=== PATIENT | male | born 1960 | race Caucasian/White ===

== ENCOUNTER 2021-10-18 11:04 | Outpatient (CLI) | payer OTHER, MEDICAID, SELFPAY ==
[2021-10-18 13:41] LABS: Chloride* 103 mmol/L (96-114); Sodium* 136 mmol/L (135-149)
[2021-10-18 13:42] LABS: Potassium* 4.8 mmol/L (3.6-5.1)
[2021-10-18 13:44] LABS: Alanine Aminotransferase* 24 U/L (4-50); Blood Urea Nitrogen* 22 mg/dL (7-30); Carbon Dioxide* 24 mmol/L (20-32); Cholesterol* 210 mg/dL (90-199); Creatinine* 1.1 mg/dL (0.5-1.5); Estimated Glomerular Filt Rate 75 ml/min
[2021-10-18 13:45] LABS: Calcium* 9.3 mg/dL (8.4-10.6); Glucose* 98 mg/dL (60-115); HDL Cholesterol* 55 mg/dL (>=40); LDL Cholesterol Calculated 137 mg/dL (<100); Triglycerides* 92 mg/dL (40-149)
== END 2021-10-18 11:05 | disposition home or self-care (01) ==
PROVIDERS: PCP Family Medicine; Visit Provider Family Medicine
DX: Z00.00 Encounter for general adult medical examination without abnormal findings (principal); I10 Essential (primary) hypertension; C61 Malignant neoplasm of prostate; F41.8 Other specified anxiety disorders; B35.4 Tinea corporis; Z13.6 Encounter for screening for cardiovascular disorders
CPT/HCPCS: 80048; 80061; 84460

== ENCOUNTER 2021-11-23 10:12 | Outpatient (CLI) | payer OTHER, MEDICAID, SELFPAY ==
[2021-11-23 11:28] LABS: PSA Diagnostic* 4.22 ng/mL (0.10-4.00)
== END 2021-11-23 10:13 | disposition home or self-care (01) ==
PROVIDERS: PCP Family Medicine; Visit Provider Physician Assistant
DX: C61 Malignant neoplasm of prostate (principal)
CPT/HCPCS: 36415; 84153

== ENCOUNTER 2022-02-20 11:00 | Outpatient (RCR) | payer OTHER, MEDICAID, SELFPAY | END 2022-05-29 13:50 | disposition home or self-care (01) | PROVIDERS: PCP Family Medicine; Visit Provider Internal Medicine | DX: C61 Malignant neoplasm of prostate (principal); Z51.89 Encounter for other specified aftercare | CPT/HCPCS: 97110; 97140; 97162 ==

== ENCOUNTER 2022-02-22 10:57 | Outpatient (CLI) | payer OTHER, MEDICAID, SELFPAY ==
[2022-02-22 12:28] LABS: PSA Diagnostic* 2.84 ng/mL (0.10-4.00)
== END 2022-02-22 10:58 | disposition home or self-care (01) ==
PROVIDERS: PCP Family Medicine; Visit Provider Internal Medicine
DX: C61 Malignant neoplasm of prostate (principal)
CPT/HCPCS: 36415; 84153

== ENCOUNTER 2022-04-03 14:30 | Outpatient (RCR) | payer OTHER, MEDICAID, SELFPAY ==
--- NOTE | 2022-03-11 17:23 | PT.OPEX ---
Please sign the attached PT evaluation completed on 03/11/22. Thank you. PT [facility] Eval Start: 03/11/22 11:29 Freq: Status: Active Protocol: Document 03/11/22 11:31 TLQ (Rec: 03/11/22 15:23 TLQ [id number]) E-signed By Veronica Cervantes DPT Physical Therapy Outpatient Evaluation Insurance Information Recert Due Date 06/09/22 Insurance Name Other; See Comments Insurance Information/Comments Medicare Advantage [employer] Gold Choice Medical Diagnosis Pain in left shoulder Pain in right shoulder Treating Diagnosis Pain in L shoulder (M25.512) Pain in R shoulder (M25.511) Referring MD Magana Subjective Subjective States he's been having pain in both of his shoulder, left side hurts a lot more than the right. Pain has been present for about 3 years, thinks its related to over-training. Participates in classes at [employer] for [facility], aerobics. Pain worsens with any overhead lifting or lifting his arm out to the side. Pain is localized to the front of his shoulder. Prefers to sleep on his stomach, pain wakes him up 2-3 nights per week, usually a few times a night on the nights when it does wake him up. Hasn't had any imaging done. Currently attending PT for pelvic floor. Current medical history: prostate cancer PMHx: stroke (3 years ago, L- side impacted), strep infection (brain) Pain Comments 0/10 at rest L shoulder: 6/10 R shoulder: 3/10 Current Work Status [employer] Disability Preferred Name [employer] Precautions Treatment Precautions/Contraindications Active cancer Therapy Limitations/Systems Review Other Medical Problem Objective Range of Motion Shoulder: flexion - L 170 pain, R 180 pain abduction - L 180 pain, R 180 internal rotation - L T12, R T6 external rotation - L T2 mild discomfort, R T4 Strength Shoulder: flexion - 5 B, L sided discomfort extension - 5 B abduction - 5 B adduction - 5 B internal rotation - 5 B external rotation - L 4- very painful, R 4+ discomfort protraction - L 4, R 5 Elbow: flexion - 5 B extension - 5 B Palpation TTP - teres minor bilaterally, L bicep, bilateral pectorals Non-tender with palpation of R bicep, bilateral supraspinatus muscle/tendon, bilateral infraspinatus muscle /tendon Joint mobility - L scapula hypermobile Posture Rounded shoulders posture Sensation/Reflexes UE sensation - screened and intact Other/Pertinent Objective Shoulder: Acromioclavicular shear test - negative bilaterally Marcos-Orlando test - negative on R, positive on L Neer impingement test - positive bilaterally Lancaster's active compression test - positive bilaterally Empty can test - positive on R , negative on L Drop arm test - negative on R, positive on L for pain at 45 degrees (feels clunk) Lift-off (subscapularis) test - negative bilaterally Functional Test Performed & Score SPADI score (03/11/22): 34/130 (pain > disability) Assessment Assessment/Impression Patient is a 61 year old male who presents to physical therapy with chronic bilateral shoulder pain, L >R. He has history of stroke impacting the L side of his body 3 years ago, has active prostate cancer for which he was receiving radiation therapy. Patient is fairly active, takes multiple group exercise classes each weak. Shoulder symptoms consistent with impingement syndrome, pain primarily with overhead activities, positive Marcos- Orlando and Neers. Possible labral involvement due to positive Lancaster's test, does not experience locking in his shoulder but will plan to further assess at next visit. Overall demonstrates full ROM, painful with full flexion and abduction bilaterally, limited in external rotation on L side and presents with pain upon resistive testing. Tender with palpation of L biceps and bilateral pectoralis muscles. He will benefit from skilled therapeutic interventions to achieve full, pain-free shoulder mobility in order to perform overhead activities throughout his daily life. Primary Functional Limitations chronic bilateral shoulder pain, limited L shoulder external rotation, pain with overhead reaching, decreased quality of sleep, shoulder external rotation weakness, L scapular hypermobility Plan of Care Rehabilitation Potential Fair Rehabilitation Potential Comments Fair rehab potential give chronicity of symptoms Physical Therapy Goals In 3-4 visits: - Patient will wake up no more than 2 nights per week for improved quality of sleep. - Patient will decrease subjective report of L shoulder pain to <4/10 for improved tolerance to overhead activities. In 6-8 visits: - Will improve shoulder external rotation and protraction strength to 5/5 to tolerate lifting 5lbs with minimal symptoms. - Pain will wake patient up no more than 1 night per week for improved quality of sleep. - L shoulder pain with decrease to 2/10 for improve participation in exercise classes. - Patient will adhere to HEP to manage symptoms IND at home . Treatment Plan/Direct Interventions Joint Mobilization,Manual Therapy,Neuromuscular Re-ed, Therapeutic Activities, Therapeutic Exercises Frequency/Duration 1x/week for 8 weeks Patient Will Be Discharged From Therapy Completion of LTG(s),Skills Plateau,Independent w/HEP, Independently Progressing Evaluation Billing Untimed Code Treatment Minutes 40 Complexity Moderate Certification Information Initial Certification Date 03/11/22 Ending Certification Date 06/09/22 Provider Signature Shows Agreement With POC & Medical Necessity Physician Signature & Date Requested Please Sign/Date Here Physician Comment/Change : Physician NPI Number #
== END 2022-07-12 12:33 | disposition home or self-care (01) ==
PROVIDERS: PCP Family Medicine; Visit Provider Family Medicine
DX: M25.511 Pain in right shoulder (principal); M25.512 Pain in left shoulder; Z51.89 Encounter for other specified aftercare
CPT/HCPCS: 97110; 97140; 97162

== ENCOUNTER 2022-06-04 13:18 | Outpatient (CLI) | payer OTHER, MEDICAID, SELFPAY ==
[2022-06-04 14:36] LABS: PSA Diagnostic* 2.16 ng/mL (0.10-4.00)
== END 2022-06-04 13:19 | disposition home or self-care (01) ==
PROVIDERS: PCP Family Medicine; Visit Provider Internal Medicine
DX: C61 Malignant neoplasm of prostate (principal)
CPT/HCPCS: 36415; 84153

== ENCOUNTER 2023-01-31 10:45 | Outpatient (CLI) | payer OTHER, MEDICAID, SELFPAY ==
[2023-01-31 12:04] LABS: PSA Diagnostic* 2.38 ng/mL (0.10-4.00)
== END 2023-01-31 10:46 | disposition home or self-care (01) ==
LOC: LAB 10:49
PROVIDERS: PCP Family Medicine; Visit Provider Physician Assistant
DX: C61 Malignant neoplasm of prostate (principal)
CPT/HCPCS: 36415; 84153

== ENCOUNTER 2023-04-04 10:13 | Outpatient (CLI) | payer OTHER, SELFPAY | END 2023-04-04 10:14 | disposition home or self-care (01) | PROVIDERS: PCP Family Medicine; Visit Provider Family Medicine | DX: Z00.00 Encounter for general adult medical examination without abnormal findings (principal); I10 Essential (primary) hypertension; E55.9 Vitamin D deficiency, unspecified; Z13.6 Encounter for screening for cardiovascular disorders | CPT/HCPCS: 80048; 80061 ==

== ENCOUNTER 2023-05-06 13:17 | Outpatient (CLI) | payer OTHER, SELFPAY ==
[2023-05-06 15:35] LABS: PSA Diagnostic* 2.17 ng/mL (0.10-4.00)
== END 2023-05-06 13:18 | disposition home or self-care (01) ==
PROVIDERS: PCP Family Medicine; Visit Provider Internal Medicine
DX: C61 Malignant neoplasm of prostate (principal)
CPT/HCPCS: 36415; 84153

== ENCOUNTER 2023-08-15 10:51 | Outpatient (CLI) | payer OTHER, SELFPAY ==
[2023-08-15 12:20] LABS: PSA Diagnostic* 2.62 ng/mL (0.10-4.00)
== END 2023-08-15 10:52 | disposition home or self-care (01) ==
LOC: LAB 10:53
PROVIDERS: PCP Family Medicine; Visit Provider Physician Assistant
DX: C61 Malignant neoplasm of prostate (principal)
CPT/HCPCS: 36415; 84153

== ENCOUNTER 2024-01-13 15:25 | Outpatient (CLI) | payer OTHER, SELFPAY | END 2024-01-13 15:26 | disposition home or self-care (01) | PROVIDERS: PCP Family Medicine; Visit Provider Family Medicine | DX: Z01.818 Encounter for other preprocedural examination (principal); I10 Essential (primary) hypertension; E55.9 Vitamin D deficiency, unspecified; Z13.6 Encounter for screening for cardiovascular disorders | CPT/HCPCS: 80048; 80061; 85025 ==

== ENCOUNTER 2024-01-27 07:23 | Day surgery (SDC) | payer OTHER, SELFPAY ==
[2024-01-27] VITALS (10 sets, daily range): BP systolic 129–162; BP diastolic 79–102; PULSE 62–88; RESP 16; TEMP 36.2–36.6; O2SAT 96–100; BMI 24.2
[2024-01-27] MEDS: SODIUM CHLORIDE 0.9 % (FLUSH) 10 ML SYRINGE IVF (07:40)
--- NOTE | 2024-01-27 08:34 | W.PM.H&PU ---
History & Physical Update History & Physical Update H&P Reviewed and patient assessed: No changes noted
--- NOTE | 2024-01-27 08:37 | P.GSOP_ITS ---
Operative Note Date of procedure: 01/27/24 Pre-op diagnosis: 1. Symptomatic Left inguinal hernia. Post-op diagnosis: 1. Indirect left inguinal hernia with incarcerated sigmoid colon. Type of Procedure: 1. Open left inguinal hernia repair with mesh. Indications: 63-year-old male with history of inguinal hernia repair as a child, open right inguinal hernia repair with mesh, and prostate cancer treated with radiation presented to clinic for evaluation of a left inguinal bulge. Patient noticed a bulge several months ago. The bulge has been increasing in size. Patient feels discomfort in the bulge when he is walking up stairs, lifting something heavy, which stands for prolonged period of time. 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 On clinical exam patient had a well-healed surgical scar over the right inguinal canal. Patient's left testicle was positioned higher than the right. With the patient standing up and doing Valsalva there is a small left inguinal hernia palpated. This was reducible. Given patient's clinical history and his symptoms, an open left inguinal hernia repair was recommended. The procedure was discussed in detail. The risks associated procedure including infection, bleeding, nerve pain, chronic pain, and hernia recurrence were all discussed with the patient, and he agreed to proceed. Procedure Description: After discussing the risks and benefits of the procedure, the patient signed informed consent.? The operative site was marked and the patient was brought to the operating room and placed on the operating table in supine position.? Care was taken to pad the patient's pressure points.?? The patient was initially sedated and then subsequently intubated by anesthesia.?? The operative site was then prepped and draped in the usual sterile fashion.? A time-out was then performed. Surgical site was prepped and draped in sterile fashion. Site of the incision was marked with a marking pen and local anesthetic was injected. An oblique incision was made just above and medial to the left inguinal ligament. Subcutaneous tissue was dissected to external obliques. Superficial subcutaneous vascular branches were clamped, divided and tied with 3-0 Vicryl ties. Small incision was made through the external oblique aponeurosis with scalpel. I then used Metzenbaum scissors to dissect under external obliques and extend my incision. Mosquito clamps were placed on the edges of external oblique exposing the inguinal floor. The left Ilioinguinal nerve was identified and was going through the plain of dissection. The nerve was divided proximally and distally and a 3 cm segment of it was excised. This was not sent to pathology. I then identified the spermatic cord and the hernia sac. I bluntly dissected subcutaneous tissues in order to place [place] drain around the cord structures. Cremasteric fibers were peeled off and dissected off the hernia sac and cord structures. This was an indirect hernia. The hernia sac was from the spermatic cord bluntly and with cautery. The indirect hernia sac was incised with Metzenbaum scissors and examined from the inside. Epiploic fat of sigmoid colon was adherent to the inside of the hernia sac. This was mobilized with cautery and Metzenbaum scissors with care taken not to injure the sigmoid colon. Hemostasis was achieved with cautery and Vicryl ties. The sigmoid colon was then reduced into the abdomen. A stitch using 2-0 Vicryl was placed near the base of the hernia sac through the sac and the hernia sac tied off. Hernia sac was then excised and not sent to pathology. This was then pushed into preperitoneal space through the internal ring. Surgical field was examined for bleeding and hemostasis was achieved with cautery and Vicryl ties. A Bard mesh onlay was also used for hernia repair. The mesh onlay was sutured in place with interrupted 0-0 Neurolon sutures to the conjoint tendon medially and shelving edge laterally, pubic tubercle inferiorly. Simple interrupted sutures were placed using 0-0 Neurolon at the base of internal inguinal ring making it only large enough to fit a tip of one finger through. Spermatic cord was placed back into scrotum. Bud drain was removed. External oblique aponeurosis was closed with a running 3-0 Vicryl. Additional local anesthetic was injected into subcutaneous tissues. Clive's fascia and subcutaneous tissue was re-approximated with interrupted Vicryl stitches. Skin incision was closed with 4-0 Monocryl subcuticular stitch. Steri strips and sterile dressing were applied over incision. All counts were correct at the end of the case. Patient tolerated this procedure well and was transferred to PACU in stable condition. Findings: Indirect left inguinal hernia with sac containing sigmoid colon. Repaired with mesh. Anesthesia: GETA Surgeon: Lance Bailey MD Estimated blood loss (mL): 5 Condition: stable Disposition: PACU
[2024-01-27] MEDS: CEFAZOLIN 2 GM INJ IVP (09:02)
[2024-01-27] MEDS: LIDOCAINE 1%-EPI 1:100,000 20 ML INFILTRATI (09:14)
[2024-01-27] MEDS: BUPIVACAINE 0.25% 30 ML INJECTION (09:14)
--- NOTE | 2024-01-27 10:04 | W.ANESCHARGE ---
Anesthesia Charges Start Date/Time Anesthesia Start Date: 01/27/24 Anesthesia Start Time: 08:55 Stop Date/Time Anesthesia Stop Date: 01/27/24 Anesthesia Stop Time: 10:24
--- NOTE | 2024-01-27 10:22 | W.ANESCHARGE ---
Anesthesia Charges Start Date/Time Anesthesia Start Date: 01/27/24 Anesthesia Start Time: 08:55 Stop Date/Time Anesthesia Stop Date: 01/27/24 Anesthesia Stop Time: 10:24
== END 2024-01-27 11:24 | disposition home or self-care (01) ==
PROVIDERS: PCP Family Medicine; Visit Provider Surgery
PROC: (CPT 49507; principal; 2024-01-27 09:00)
DX: K40.30 Unilateral inguinal hernia, with obstruction, without gangrene, not specified as recurrent (principal)
CPT/HCPCS: 49507; 00830; C1781; J0665; J0690; J2405; J2704

== ENCOUNTER 2024-02-11 13:34 | Outpatient (CLI) | payer OTHER, SELFPAY ==
--- OUTSIDE RECORDS SUMMARY | 2024-02-11 13:36 | XMS_ITS ---
Author Organization [facility] Address [address] [place] [address] Care Team Providers Care Bell Spinner Name Role Phone Unavailable Unavailable Unavailable Surgery Details Not on file Complications Check Surgery Details section. Procedure Estimated Blood Loss Check Surgery Details section. Procedure Findings Check Surgery Details section. Procedure Specimens Taken Check Surgery Details section.
--- OUTSIDE RECORDS SUMMARY | 2024-02-11 13:36 | XMS_ITS | Clinical Summary ---
Author Organization [facility] Address [place], [place] [address] Care Team Providers Care Reiki Practitioner Name Role Phone [facility] Unavailable [phone] Ernie Magana MD Primary Care Provider + Allergies Active Allergy Reactions Criticality Noted Date Comments Fentanyl Itching 01/24/2015 Medications Medication Sig Dispensed Refills Start Date End Date Status venlafaxine (EFFEXOR XR) 150 mg Extended-Release capsuleIndications:D epression with anxiety Take 1 capsule by mouth once daily with a meal. 30 capsule 02/21/2020 Active tadalafiL (CIALIS;ADCIRCA) 20 mg tablet Take 20 mg by mouth once daily if needed for Erectile Dysfunction. 05/23/2020 Active multivitamin,ther and minerals (MULTIVITAMIN WITH MINERALS) tablet Take 1 tablet by mouth once daily. Active amoxicillin (AMOXIL) 500 mg tabletIndications:Br ain abscess Take 2 Tablets (1,000 mg) by mouth 3 times daily with meals. 84 Tablet 07/11/2020 Active lisinopriL (PRINIVIL; ZESTRIL) 10 mg tablet Take 10 mg by mouth. 07/11/2020 Active Active Problems Problem Noted Date Diagnosed Date Family history of colon cancer 10/17/2020 Overview (10/17/2020): Father SBO (small bowel obstruction) 06/03/2020 Erectile dysfunction 06/03/2020 Medical cannabis use 06/03/2020 Overview (06/03/2020): Through [place] registry Right hemiparesis 02/25/2020 Hypertension 01/31/2020 Weakness of right upper extremity 01/20/2020 Multiple brain abscesses 01/20/2020 Streptococcal sepsis 12/27/2016 Overview (12/27/2016): Strep intermedius sepsis / liver abscesses Ankylosing spondylitis 12/23/2016 Vitamin D deficiency 01/30/2015 Allergic conjunctivitis 10/17/2011 Chronic low back pain 10/17/2011 Sleep disturbance 12/17/2010 Anxiety 10/29/2010 Depression with anxiety 09/06/2010 Psychosis 06/28/2003 Overview (10/17/2020): Overview: Epic Resolved Problems Problem Noted Date Diagnosed Date Resolved Date Liver abscess 02/03/2020 06/03/2020 Elevated ALT measurement 01/23/2020 Encephalopathy acute 01/20/2020 021 Abnormal MRI of the head 01/20/2020 History of streptococcal septicemia 01/18/2020 06/03/2020 Overview (01/18/2020): Strep intermedius (with liver abscess as well) 2016 Hyponatremia 01/16/2020 06/03/2020 Hypokalemia 01/16/2020 06/03/2020 Liver abscess 12/26/2016 06/03/2020 Transaminitis 12/26/2016 06/03/2020 Hydroureter 12/26/2016 06/03/2020 Hydronephrosis 12/26/2016 06/03/2020 Infrarenal Retroperitoneal mass 12/26/2016 06/03/2020 Bacteremia 12/26/2016 06/03/2020 Leukocytosis 12/24/2016 06/03/2020 Sepsis 12/23/2016 06/03/2020 JAX (acute kidney injury) 12/23/2016 Pain medication agreement 09/13/2011 Overview (09/13/2011): Takes up to 2 vicodin per day Immunizations Name Administration Dates Next Due Tdap 01/04/2022 Family History Medical History Relation Name Comments Cancer Father pancreatic and colon with METS Cancer-breast Mother metastatic Colon polyps Mother Melanoma Sister Relation Name Status Comments Father Mother Sister Social History Tobacco Use Types Packs/Day Years Used Date Smoking Tobacco: Former Cigarettes Smokeless Tobacco: Former Quit: 11/05/2013 Tobacco Cessation:Counseling Given: Yes Alcohol Use Standard Drinks/Week Comments No 0 (1 standard drink = 0.6 oz pure alcohol) formerly a problem in the 1980s. Social Connections Answer Date Recorded Frequency of Communication with Friends and Fami ly Not on file 04/07/2021 Financial Resource Strain Answer Date R ecorded Difficulty of Paying Living Expenses Not on file 04/07/2021 Difficulty of Paying Living Expenses Not on file 04/07/2021 Sex and Gender Information Value Date Recorded Sex Assigned at Not on file Gender Identity Not on file Sexual Orientation Not on file Obstetrics History Last Filed Vital Signs Vital Sign Reading Time Taken Comments Blood Pressure 138/78 01/04/2022 8:18 PM CDT Pulse 72 01/04/2022 8:18 PM CDT Temperature 36.6 ??C (97.9 ??F) 01/04/2022 8:18 PM CD T Respiratory Rate 16 01/04/2022 8:18 PM CDT Oxygen Saturation 97% 01/04/2022 8:18 PM CDT Inhaled Oxygen Concentration - - Weight 78.5 kg (173 lb) 01/04/2022 8:18 PM CDT Height 177.8 cm (5' 10) 01/04/2022 8:18 PM CDT Body Mass Index 24.82 01/04/2022 8:18 PM CDT Plan of Treatment Health Maintenance Due Date Last Done Comments Colonoscopy through age 75 1958 Depression screening for age 12+ 1970 HIV for age 15-65 1973 Hepatitis C screening for age 18-79 1976 Zoster (shingles) series for age 50+ (1 of 2) 2008 BMI (ht and wt on same day) for age 18+ 08/07/2021 08/07/2020, 12/23/2016 Pneumococcal series for age 65+ (1 of 1 - PCV) 2023 COVID-19 vaccine series ( season) 2023 10/31/2020, 09/25/2020 Influenza for age 65+ 12/07/2023 Lipids for age 45-75 01/19/2025 01/20/2020 Tetanus booster 01/05/2032 01/04/2022, 10/2006 (Completed outside of [facility]) Tdap Completed 01/04/2022 Medical Devices Implanted Type Area System Configuration Specialist Device Identifier Shelf Expiration Date Model / Serial / Lot Stent Uret [id number] Contour - [id number] Implanted:Qty: 1 on 12/31/2016 by David Vance MD at [facility] Right: [facility] [id number] / / Procedures Procedure Name Priority Date/Time Associated Diagnosis Comments LIPID PANEL Early AM 01/20/2020 4:47 AM CDT from Last 3 Months or Most Recently Relevant to Health Maintenance Results * (ABNORMAL) Lipid Panel (01/20/2020 4:47 AM CDT) Pathologist [facility] CHOLESTEROL,TOTAL 110 100 - 199 mg/dL 01/20/2020 5:17 AM CDT [facility] TRIGLYCERIDES 107 <150 mg/dL 01/20/2020 5:17 AM CDT [facility] HDL CHOLESTEROL 21(L) >40 mg/dL 0 5:17 AM CDT [facility] NON-HDL CHOLESTEROL 89 <145 mg/dl 01/20/2020 5:17 AM CDT [facility] CHOL/HDL RATIO 5.24(H) <4.50 01/20/2020 5:17 AM CDT [facility] LDL CHOLESTEROL 68 <=130 mg/dL 01/20/2020 5:17 AM CDT [facility] PROVIDER ORDERED STATUS RANDOM 01/20/2020 5:17 AM CDT [facility] Blood BLOOD SPECIMEN / Unknown Venipuncture / Unknown 01/20/2020 4:47 AM CDT 01/20/2020 4:53 AM CDT Yolis Angela MD [facility] [address] [place] [address], from Last 3 Months or Most Recently Relevant to Health Maintenance Advance Directives * Full Code (Latest Code Status on File) Date Activated Date Inactivated Comments 06/03/2020 7:36 PM 06/07/2020 4:18 PM Question Answer Comments Code Status Discussion: Per Existing Order * Full Code Date Activated Date Inactivated Comments 02/03/2020 2:26 PM 02/22/2020 1:07 PM Question Answer Comments Code Status Discussion: Per Existing Order * Full Code Date Activated Date Inactivated Comments 01/16/2020 9:53 PM 02/03/2020 2:06 PM Question Answer Comments Code Status Discussion: Not Discussed * Full Code Date Activated Date Inactivated Comments 12/26/2016 9:59 PM 01/03/2017 6:38 PM * Full Code Date Activated Date Inactivated Comments 12/23/2016 9:27 PM 12/26/2016 9:49 PM Care Teams Reiki Practitioner Relationship Specialty Start Date End Date Ernie Magana MD [address] [place] [address] PCP - General Family Practice 02/07/21 [facility] 01/04/17
--- OUTSIDE RECORDS SUMMARY | 2024-02-11 13:36 | XMS_ITS | Continuity of Care Document ---
Author Organization [facility] Address [address] [place] [address] Care Team Providers Care Field Appraiser Name Role Phone Unavailable Primary Care Provider Unavailabl e Source Comments Patient records contain information from all sites at [facility]. For routine questions regarding patient records, call [phone] during business hours, M-F 8:00 AM - 5:00 PM Central Time. Record requests for emergency care only can be directed to [phone] at any time.[facility] Encounters Date Type Department Care Team Description 12/02/2023 Clinical Communication Department of Radiation Oncology in [address] [address] Ky Guidry M.D. 06/05/2023 Clinical Communication Department of Radiation Oncology in [address] [address] Ky Guidry M.D. 02/03/2023 Orders Only Department of Radiation Oncology in [address] [address] Mare Murphy APRN, C.N.P., D.N.P. Primary Malignant Neoplasm Of Prostate (HCC) (Primary Dx) 11/28/2022 Clinical Communication Department of Radiation Oncology in [address] [address] Ky Guidry M.D. 10/14/2022 9:34 AM CDT - 10/14/2022 4:24 PM CDT Hospital Encounter Department of Radiation Oncology in [address] [address] Ky Guidry M.D. Primary Malignant Neoplasm Of Prostate (HCC) (Primary Dx) 09/06/2022 Clinical Communication Department of Radiation Oncology in [address] [address] Mare Murphy APRN, C.N.P., D.N.P. 06/14/2022 Clinical Communication Department of Radiation Oncology in [address] [address] Ky Guidry M.D. 06/11/2022 Clinical Communication Department of Radiation Oncology in [address] [address] Akilah Tejeda R.N. 06/04/2022 Clinical Communication Department of Radiation Oncology in [address] [address] Ky Guidry M.D. 03/04/2022 9:28 AM [facility] - 03/04/2022 2:28 PM [facility] Hospital Encounter Department of Radiation Oncology in [address] [address] Ky Guidry M.D. Primary Malignant Neoplasm Of Prostate (HCC) (Primary Dx) 01/04/2022 Clinical Communication Department of Radiation Oncology in [address] [address] Ky Guidry M.D. 01/02/2022 Clinical Communication Department of Radiation Oncology in [address] [address] Ky Guidry M.D. 01/02/2022 [facility] Only Department of Radiation Oncology in [address] [address] Ky Guidry M.D. Primary Malignant Neoplasm Of Prostate (HCC) (Primary Dx); Weakness General; Urinary Urge Incontinence 11/29/2021 9:10 AM CDT - 11/29/2021 9:57 AM CDT Hospital Encounter Department of Radiation Oncology in [address] [address] Ky Guidry M.D. Primary Malignant Neoplasm Of Prostate (HCC) (Primary Dx) 11/22/2021 Orders Only Department of Radiation Oncology in [address] [address] Gena Lynn RMendel Primary Malignant Neoplasm Of Prostate (HCC) (Primary Dx) 09/05/2021 Clinical Communication Department of Radiation Oncology in [address] [address] Brenda Lopez 08/20/2021 Documentation Department of Radiation Oncology in [address] [address] Ky Guidry M.D. Radiation 08/20/2021 11:13 AM CDT - 08/20/2021 4:47 PM CDT Hospital Encounter Department of Radiation Oncology in [address] [address] Ky Guidry M.D. Primary Malignant Neoplasm Of Prostate (HCC) 08/20/2021 11:12 AM CDT Hospital Encounter Department of Radiation Oncology in [address] [address] Ky Guidry M.D. Discharge Disposition: Home or Self Care 08/17/2021 9:30 AM CDT - 08/17/2021 11:59 PM CDT Hospital Encounter Department of Radiation Oncology in [address] [address] Ky Guidry M.D. Kozelsky, Timothy F, M.D. Discharge Disposition: Home or Self Care 08/15/2021 11:12 AM CDT - 08/15/2021 11:59 PM CDT Hospital Encounter Department of Radiation Oncology in [address] [address] Ky Guidry M.D. Garces, Yolanda I., M.D. Discharge Disposition: Home or Self Care 08/13/2021 11:43 AM CDT - 08/13/2021 12:05 PM CDT Hospital Encounter Department of Radiation Oncology in [address] [address] Ky Guidry M.D. Kozelsky, Timothy F, M.D. Primary Malignant Neoplasm Of Prostate (HCC) 08/13/2021 12:06 PM CDT - 08/13/2021 11:59 PM CDT Hospital Encounter Department of Radiation Oncology in [address] [address] Ky Guidry M.D. Garces, Yolanda I., M.D. Discharge Disposition: Home or Self Care 08/10/2021 11:05 AM CDT - 08/10/2021 11:59 PM CDT Hospital Encounter Department of Radiation Oncology in [address] [address] Ky Guidry M.D. Garces, Yolanda I., M.D. Discharge Disposition: Home or Self Care 08/02/2021 8:30 AM CDT - 08/02/2021 10:56 AM CDT Hospital Encounter Department of Radiation Oncology in [address] [address] Ky Guidry M.D. Primary Malignant Neoplasm Of Prostate (HCC) 08/02/2021 7:46 AM CDT - 08/02/2021 8:29 AM CDT Hospital Encounter Department of Radiation Oncology in [address] [address] Ky Guidry M.D. Primary Malignant Neoplasm Of Prostate (HCC) (Primary Dx) 08/01/2021 Orders Only Department of Radiation Oncology in [address] [address] Ky Guidry M.D. Primary Malignant Neoplasm Of Prostate (HCC) (Primary Dx) 08/01/2021 9:00 AM CDT - 08/01/2021 11:59 PM CDT Hospital Encounter Department of Laboratory Medicine and Pathology, [place], [place] [address] [place] [address] Ky Guidry M.D. Primary Malignant Neoplasm Of Prostate (HCC) Discharge Disposition: Home or Self Care 08/01/2021 9:24 AM CDT - 08/01/2021 11:00 AM CDT Hospital Encounter Department of Radiology, [place], [place] [address] [place] [address] Ky Guidry M.D. Primary Malignant Neoplasm Of Prostate (HCC) Discharge Disposition: Home or Self Care 06/18/2021 2:42 PM CDT - 06/19/2021 6:19 PM CDT Hospital Encounter Department of Radiation Oncology in [address] [address] Ky Guidry M.D. Primary Malignant Neoplasm Of Prostate (HCC) (Primary Dx) 06/07/2021 2:59 PM [facility] - 06/07/2021 5:16 PM [facility] Hospital Encounter Department of Radiation Oncology in [address] [address] Ky Guidry M.D. Primary Malignant Neoplasm Of Prostate (HCC) (Primary Dx) 05/23/2021 12:31 PM [facility] - 05/25/2021 11:38 AM [facility] Hospital Encounter Department of Radiation Oncology in [address] [phone] Ky Guidry M.D. Primary Malignant Neoplasm Of Prostate (HCC) (Primary Dx) 04/18/2010 10:29 AM [facility] - 04/18/2010 11:59 PM [facility] Hospital Encounter [facility] Shaun Silver P.A.-C. Allergies Active Allergy Reactions Criticality Noted Date Comments Fentanyl Itching 11/19/2012 Medications lisinopriL (PRINIVIL,ZESTRI L) 10 mg tablet 02/28/2021 Act aracelis venlafaxine XR (EFFEXOR-XR) 150 mg 24 hr capsule 03/17/2021 Ac tive multivitamin,tx- minerals (Super Thera Chad M) tablet Take 1 tablet by mouth. Active tadalafiL (CIALIS, ADCIRCA) 20 mg tablet Take 20 mg by mouth. 05/23/2020 Active Active Problems Problem Noted Date Diagnosed Date Primary Malignant Neoplasm Of Prostate 2 Cancer Staging:Clinical stage from 03/26/2021:Stage IIC(cT1c, cN0, cM0, PSA: 10.5, Grade Group: 4) - Unsigned Dysthymia 04/18/2010 Overview (08/27/2016): Depression with Anxiety* Immunizations Name Administration Dates Next Due Tdap 09/19/2006 Family History Medical History Relation Name Comments Prostate cancer Father Breast cancer Mother Melanoma Sister Prostate cancer Uncle Relation Name Status Comments Father Mother Sister Uncle Social History Smoking Status as of 02/11/2024 Tobacco Use Types Packs/Day Years Used Date Smoking Tobacco: Never Assessed Humiliation, Afraid, Rape, and Kick questionnair e Answer Date Recorded Within the last year, have y ou been afraid of your partner or ex-partner? No 02/27/2022 Within the last year, have y ou been humiliated or emotionally abused in other ways by your partner or ex-partner? No Within the last year, have y ou been kicked, hit, slapped, or otherwise physically hurt by your partner or ex-partner? No 02/27/2022 Within the last year, have y ou been raped or forced to have any kind of sexual activity by your partner or ex-partner? No 02/27/2022 Social Connection and Isolat ion Panel [NHANES] Answer Date Recorded In a typical week, how many times do you talk on the phone with family, friends, or neighbors? Twice a week 02/27/2022 How often do you get togethe r with friends or relatives? More than three times a week 02/27/2022 How often do you attend chur ch or voodoo services? 1 to 4 times per year 02/27/2022 Do you belong to any clubs o r organizations such as rastafarian groups, unions, fraternal or athletic groups, or school groups? Yes 02/27/2022 How often do you attend meet ings of the clubs or organizations you belong to? Patient declined 02/27/2022 Are you , , di vorced, , never , or living with a partner? Living with partner 02/27/2022 AUDIT-C Answer Date Recorded Q1: How often do you have a drink containing alc ohol? Never 02/27/2022 Average Number of Drinks Not on file 022 Frequency of Binge Drinking Not on file 02/06 Overall Financial Resource Strain (CARDIA) Answe r Date Recorded How hard is it for you to pa y for the very basics like food, housing, medical care, and heating? Hard 02/27/2022 [facility] - Occupational Stress Questionnaire Answer Date Recorded Do you feel stress - tense, restless, nervous, or anxious, or unable to sleep at night because your mind is troubled all the time - these days? Only a little 02/27/2022 Exercise Vital Sign Answer Date Recorde d On average, how many days pe r week do you engage in moderate to strenuous exercise (like a brisk walk)? 7 days 02/27/2022 On average, how many minutes do you engage in exercise at this level? 120 min 02/27/2022 Hunger Vital Sign Answer Date Recorded Within the past 12 months, y ou worried that your food would run out before you got the money to buy more. Never true 02/28/20 22 Within the past 12 months, t he food you bought just didn't last and you didn't have money to get more. Never true 02/27/2022 PRAPARE - Transportation Answer Date Re corded In the past 12 months, has l ack of transportation kept you from medical appointments or from getting medications? No 02/06 In the past 12 months, has l ack of transportation kept you from meetings, work, or from getting things needed for daily living? No 02/27/2022 Housing Stability Vital Sign Answer Bk e Recorded In the last 12 months, was t here a time when you were not able to pay the mortgage or rent on time? No 02/27/2022 In the last 12 months, how many places have you lived? 2 02/27/2022 In the last 12 months, was t here a time when you did not have a steady place to sleep or slept in a nursing home (including now)? No 02/27/2022 Nutrition Answer Date Recorded On average, how many serving s of fruits and vegetables do you eat per day (serving size is equal to 1 cup or approximately the size of a tennis ball)? 2-3 02/27/2022 Dental Answer Date Recorded Dental: Regular Dentist Yes 07/28/19 Employment Answer Date Recorded Employment status Permanently disabled Education Answer Date Recorded What is the highest level of school you have completed or the highest degree you have received? 12th grade 07/27/2021 Sex and Gender Information Value Date Recorded Sex Assigned at Male 07/27/2021 2:39 PM CDT Legal Sex Male 2:30 PM [facility] Gender Identity Male 07/27/2021 2:39 PM CDT Sexual Orientation Straight 07/27/2021 2: 39 PM CDT Last Filed Vital Signs Vital Sign Reading Time Taken Comments Blood Pressure 135/78 03/04/2022 9:50 AM [facility] Pulse 69 03/04/2022 9:50 AM [facility] Temperature 36.5 ??C (97.7 ??F) 03/04/2022 9:50 AM CS T Respiratory Rate - - Oxygen Saturation 100% 08/01/2021 11: 25 AM CDT Inhaled Oxygen Concentration - - Weight 78.4 kg (172 lb 13.5 oz) 023 11:00 AM CDT Height - - Body Mass Index - - Plan of Treatment Not on file Medical Devices Implanted Type Area Coal Carrier Device Identifier Shelf Expiration Date Model / Serial / Lot Marker Tissue Biomarc Kv 1x5 - [id number] Implanted:Qty : 4 on 08/01/2021 by Rory Brar M.D. at [facility] [id number] 12/28/2025 [id number] / / [id number] Procedures Procedure Name Priority Date/Time Associated Diagnosis Comments ARIA COURSE COMPLETE TREATMENT INFORMATION Routine 08/20/2021 11:35 AM CDT ARIA DAILY TREATMENT INFORMATION Routine 08/20/2021 11:35 AM CDT ARIA DAILY TREATMENT INFORMATION Routine 08/17/2021 10:28 AM CDT ARIA DAILY TREATMENT INFORMATION Routine 08/15/2021 11:50 AM CDT ARIA DAILY TREATMENT INFORMATION Routine 08/13/2021 12:48 PM CDT ARIA DAILY TREATMENT INFORMATION Routine 08/10/2021 11:46 AM CDT ARIA COURSE COMPLETE TREATMENT INFORMATION Routine 08/08/2021 12:14 PM CDT OUTSIDE MR BODY Routine 08/02/2021 10:10 AM CDT INITIAL RAD ONC TREATMENT PLANNING CT SIMULATION Routine 08/02/2021 9:08 AM CDT Primary Malignant Neoplasm Of Prostate (HCC) US PROSTATE FIDUCIAL MARKER PLACEMENT WITH HYDROGEL SPACER RAD - Routine (most inpatients and all outpatients) 08/01/2021 11:21 AM CDT Primary Malignant Neoplasm Of Prostate (HCC) TESTOSTERONE, TOTAL BY MASS SPECROMETRY, S Routine 08/01/2021 9:13 AM CDT Primary Malignant Neoplasm Of Prostate (HCC) PROSTATE-SPECIFIC AG (PSA) DIAGNOSTIC, S Routine 08/01/2021 9:13 AM CDT Primary Malignant Neoplasm Of Prostate (HCC) OUTSIDE NM GENERAL Routine 04/26/2021 9: [address] BODY Routine 04/26/2021 8:40 AM [facility] OUTSIDE MR BODY Routine 02/15/2021 4:35 PM [facility] Results * Aria Course Complete Treatment Information (08/20/2021 11:35 AM CDT) Only the most recent of2 resultswithin the time period is included. Course ID 1xProstat eSBRT DEUTSCH ARIA Course Start Date 2 12:48 CDT DEUTSCH ARIA Course End Date 2 11:30 CDT DEUTSCH ARIA First Treatment Date 2 11:43 CDT DEUTSCH ARIA Last Treatment Date 2 11:35 CDT DEUTSCH ARIA Treatment Elapsed Days 10 DEUTSCH ARIA Reference Point [id number] DEUTSCH ARIA Dosage Given to Date cGy 4000 DEUTSCH ARIA Plan ID [id number] DEUTSCH ARIA Fractions Treated to Date 5 DEUTSCH ARIA Planned Total Fractions 5 DEUTSCH ARIA Prescribed Dose Per Fraction 800 DEUTSCH ARIA Prescription Dose in cGy 4000 DEUTSCH ARIA Plan Primary Reference Point [id number] DEUTSCH ARIA 08/20/2021 11:3 5 AM CDT us Provider Not In System RADIATION ONCOLOGY ORDERA BLES Final Result GET KIM na * Aria Daily Treatment Information (08/20/2021 11:35 AM CDT) Only the most recent of5 resultswithin the time period is included. Course ID 1xProstat eSBRT DEUTSCH ARIA Course Start Date 2 12:48 CDT DEUTSCH ARIA First Treatment Date 2 11:43 CDT DEUTSCH ARIA Last Treatment Date 2 11:35 CDT DEUTSCH ARIA Treatment Elapsed Days 10 DEUTSCH ARIA Reference Point [id number] DEUTSCH ARIA Dosage Given to Date cGy 4000 DEUTSCH ARIA Session Dosage Given 800 DEUTSCH ARIA Plan ID [id number] DEUTSCH ARIA Fractions Treated to Date 5 DEUTSCH ARIA Planned Total Fractions 5 DEUTSCH ARIA Prescribed Dose Per Fraction 800 DEUTSCH ARIA Prescription Dose in cGy 4000 DEUTSCH ARIA Plan Primary Reference Point [id number] DEUTSCH ARIA 08/20/2021 11:3 5 AM CDT us Provider Not In System RADIATION ONCOLOGY ORDERA BLES Final Result Performing Organization Address [facility] Co de Phone Number GET KIM na * Pelvis w/o Contrast-Outside MR Body (08/02/2021 10:10 AM CDT) Only the most recent of2 resultswithin the time period is included. 08/02/2021 10:1 0 AM CDT Narrative IIMS - 08/02/2021 12:15 PM CDT This order has been created and auto-finalized to support the import of outside images. If available, original interpretation can be found on the Media Tab in Chart Review, in Document Viewer, or as an image in QREADS. If a re-interpretation or overread is required please follow defined workflow. ?? us Provider Not In System IMG MRI PROCEDURES Final Result Performing Organization Address [facility] de Phone Number LANE NA * Initial Rad Onc Treatment Planning CT Simulation (08/02/2021 9:08 AM CDT) Narrative GET KIM - 08/02/2021 9:08 AM CDT Gala Lord, RTT ? 08/02/2021 ??9:08 AM Initial Rad Onc Treatment Planning CT Simulation Date/Time: 08/02/2021 9:08 AM Performed by: Ky Guidry M.D. Authorized by: Ky Guidry M.D. us Ky Guidry M.D. RADIATION ONCOLOGY ORDERAB LES Final Result Performing Organization Address [facility] Co de Phone Number GET caruso * US Prostate Fiducial Marker Placement with Hydrogel Spacer (08/01/2021 11:21 AM CDT) Anatomical Region Laterality Modality Pelvis, Ultrasound RST LOS, Ultrasound ARZ LOS, Vascular Interventional FLA LOS N/A Ultrasound 08/01/2021 11:4 1 AM CDT Impressions 08/01/2021 11:43 AM CDT 1. Successful ultrasound guided placement of 4 carbon seed markers into the prostate. No immediate complications. 2. Successful ultrasound guided injection of 10 cc's hydrogel between the prostate and rectum. No immediate complications. NR Narrative 08/01/2021 11:43 AM CDT EXAM: US PROSTATE FIDUCIAL MARKER PLACEMENT WITH HYDROGEL SPACER PRE-PROCEDURE: Patient seen and evaluated. Allergies, pertinent medications, and history reviewed. Discussed risks, benefits, alternatives for procedure, and obtained informed consent. Patient understands information and questions answered. Immediately prior to starting the procedure, in the presence of the assisting personnel, procedural pause was conducted to verify correct patient identity and verification of procedure to be performed, and as applicable, correct side and site, correct patient position, availability of implants, special equipment, or special requirements, and all image and specimen identification data. The roles and responsibilities of care team members, residents, and fellows were discussed. TECHNIQUE: Under the usual sterile preparations and using 1% lidocaine for local anesthesia, four carbon seeds were placed into the prostate gland (right apex, left apex, left base, and right base) via a transperineal approach and under transrectal ultrasound guidance. Post-procedure images demonstrate the four seeds to be in good position. SpaceOAR hydrogel was prepared as described in the customer care specialist's Instructions For Use. With the subject maintained in the dorsal lithotomy position, the transrectal ultrasound probe was positioned to enable visual guidance of the needle into the space between the prostate and the rectum. Under transrectal ultrasound guidance, the 18G needle was inserted through the rectourethralis muscle and the needle tip advanced into the perirectal fat inferior to the prostate all by using a transperineal approach. 1% lidocaine injected as needed for local anesthesia. ??The midline needle position with tip at mid gland was confirmed in both sagittal and axial dominguez. A small amount of saline or lidocaine was injected to confirm appropriate needle tip position between the prostate and anterior rectal wall (Denonvilliers' fascia). The lidocaine syringe was then removed and the assembled SpaceOAR delivery system was attached to the 18G needle. ?? Under ultrasound guidance (sagittal plane), a smooth, continuous injection technique was used to dispense the SpaceOAR hydrogel into the space between the prostate and rectum (Denonvilliers' fascia and the anterior rectal wall). ??The entire syringe contents (10 mL total) were injected without stopping. ??Optimal visualization of the needle during hydrogel administration was maintained at all times. No suspected penetration or compromise of the rectal wall occurred. Needle removed and local pressure held until hemostasis was achieved. Patient tolerated both procedures well and left the department in good condition. Location: Prostate gland (right apex, left apex, right base, left base). Needle size: 18G Fiducial type: Carbon Complication: None. Blood loss: None. PATIENT INSTRUCTIONS: Patient may be dismissed from the radiology department when dismissal criteria met. POST-PROCEDURE DIAGNOSIS: Prostate cancer. Procedure Note Rory Brar M.D. - 08/01/2021 EXAM: US PROSTATE FIDUCIAL MARKER PLACEMENT WITH HYDROGEL SPACER PRE-PROCEDURE: Patient seen and evaluated. Allergies, pertinentmedications, and history reviewed. Discussed risks, benefits, alternatives for procedure, and obtainedinformed consent. Patient understands information and questions answered. Immediately prior tostarting the procedure, in the presence of the assisting personnel, procedural pause was conducted toverify correct patient identity and verification of procedure to be performed, and as applicable,correct side and site, correct patient position, availability of implants, special equipment, orspecial requirements, and all image and specimen identification data. The roles and responsibilitiesof care team members, residents, and fellows were discussed. TECHNIQUE: Under the usual sterile preparations and using 1% lidocaine forlocal anesthesia, four carbon seeds were placed into the prostate gland (right apex, left apex,left base, and right base) via a transperineal approach and under transrectal ultrasound guidance.Post- procedure images demonstrate the four seeds to be in good position. SpaceOAR hydrogel was prepared as described in the customer care specialist'sInstructions For Use. With the subject maintained in the dorsal lithotomy position, the transrectalultrasound probe was positioned to enable visual guidance of the needle into the space between theprostate and the rectum. Under transrectal ultrasound guidance, the 18G needle was inserted throughthe rectourethralis muscle and the needle tip advanced into the perirectal fat inferior to theprostate all by using a transperineal approach. 1% lidocaine injected as needed for localanesthesia. The midline needle position with tip at mid gland was confirmed in both sagittal and axialfields. A small amount of saline or lidocaine was injected to confirm appropriate needle tipposition between the prostate and anterior rectal wall (Denonvilliers' fascia). The lidocaine syringe wasthen removed and the assembled SpaceOAR delivery system was attached to the 18G needle. Under ultrasound guidance (sagittal plane), a smooth, continuous injectiontechnique was used to dispense the SpaceOAR hydrogel into the space between the prostate andrectum (Denonvilliers' fascia and the anterior rectal wall). The entire syringe contents (10 mL total)were injected without stopping. Optimal visualization of the needle during hydrogeladministration was maintained at all times. No suspected penetration or compromise of the rectal wall occurred.Needle removed and local pressure held until hemostasis was achieved. Patient tolerated both procedures well and left the department in goodcondition. Location: Prostate gland (right apex, left apex, right base, left base). Needle size: 18G Fiducial type: Carbon Complication: None. Blood loss: None. PATIENT INSTRUCTIONS: Patient may be dismissed from the radiologydepartment when dismissal criteria met. POST-PROCEDURE DIAGNOSIS: Prostate cancer. IMPRESSION: 1. Successful ultrasound guided placement of 4 carbon seed markers intothe prostate. No immediate complications. 2. Successful ultrasound guided injection of 10 cc's hydrogel between theprostate and rectum. No immediate complications. NR Ky Guidry M.D. [facility] US PROCEDURES Final Re sult * Testosterone, Total by Mass Spectrometry, Serum (08/01/2021 9:13 AM CDT) [facility] Testosterone, Total by Mass Spectrometry, Serum 576 240 - 950 ng/dL 08/03/2021 1:16 AM CDT [facility] Comment: ----ADDITIONAL INFORMATION---- Testing performed by Liquid Chromatography-Tandem Mass Spectrometry (LC-MS/MS). This test was developed and its performance characteristics determined by [facility] in a manner consistent with CLIA requirements. This test has not been cleared or approved by the U.S. Food and Drug Administration. Blood (Blood, Venous) 08/01/2021 9:13 AM CDT 08/01/2021 12:58 PM CDT Ky Guidry M.D. LAB BLOOD NON ADD-ON Final Result Performing Organization Address City/[facility]/ZIP Co de Phone Number [facility] [address] [place] [address] [facility] Dept. of Laboratory Medicine and Pathology [address] [place] [address] * (ABNORMAL) PSA (Prostate-Specific Antigen), Diagnostic (08/01/2021 9:13 AM CDT) Prostate-Specific Ag 9.0(H) <=4.5 ng/mL 08/01/2021 10:27 AM CDT DTL Comment: ----ADDITIONAL INFORMATION---- The testing method is an electrochemiluminescence assay manufactured by [employer] and performed on the Modular or Landy system. Values obtained with different assay methods or kits may be different and cannot be used interchangeably. Test results cannot be interpreted as absolute evidence for the presence or absence of malignant disease. Blood (Blood, Venous) 08/01/2021 9:13 AM CDT 08/01/2021 9:51 AM CDT Ky Guidry M.D. LAB BLOOD ADD-ON Final Res ult Performing Organization Address [facility] Co de Phone Number [facility] [address] [place] [address], [place] [facility] [address] [place] [address] * BONE SCAN, WHOLE BODY-Outside NM General (04/26/2021 9:10 AM SCOUTS) Narrative [facility] - 05/22/2021 10:43 AM SCOUTS This order has been created and auto-finalized to support the import of outside images. If available, original interpretation can be found on the Media Tab in Chart Review, in Document Viewer, or as an image in QREADS. If a re-interpretation or overread is required please follow defined workflow. ?? us Provider Not In System IMG NM PROCEDURES Final R esult Performing Organization Address City/[facility]/ZIP Co de Phone Number IIMS NA * ABDOMEN PELVIS WITH CONTRAST-Outside CT Body (04/26/2021 8:40 AM SCOUTS) Narrative IIMS - 05/22/2021 10:48 AM SCOUTS This order has been created and auto-finalized to support the import of outside images. If available, original interpretation can be found on the Media Tab in Chart Review, in Document Viewer, or as an image in QREADS. If a re-interpretation or overread is required please follow defined workflow. ?? us Provider Not In System IMG CT PROCEDURES Final R esult IIMS NA Visit Diagnoses Diagnosis Start Date Primary Malignant Neoplasm Of Prostate (HCC) 05/23/2021 Primary Malignant Neoplasm Of Prostate (HCC) 06/07/2021 Primary Malignant Neoplasm Of Prostate (HCC) 06/18/2021 Primary Malignant Neoplasm Of Prostate (HCC) 08/01/2021 Primary Malignant Neoplasm Of Prostate (HCC) 08/01/2021 Primary Malignant Neoplasm Of Prostate (HCC) 08/01/2021 Primary Malignant Neoplasm Of Prostate (HCC) 08/02/2021 Primary Malignant Neoplasm Of Prostate (HCC) 08/02/2021 Primary Malignant Neoplasm Of Prostate (HCC) 08/13/2021 Primary Malignant Neoplasm Of Prostate (HCC) 08/20/2021 Primary Malignant Neoplasm Of Prostate (HCC) 11/22/2021 Primary Malignant Neoplasm Of Prostate (HCC) 11/29/2021 Primary Malignant Neoplasm Of Prostate (HCC) 01/02/2022 Weakness General 01/02/2022 Urinary Urge Incontinence 01/02/2022 Primary Malignant Neoplasm Of Prostate (HCC) 03/04/2022 Primary Malignant Neoplasm Of Prostate (HCC) 10/14/2022 Primary Malignant Neoplasm Of Prostate (HCC) 02/03/2023
--- OUTSIDE RECORDS SUMMARY | 2024-02-11 13:36 | XMS_ITS | Referral Summary ---
Author Organization [facility] Address [address] [place] [address] Care Team Providers Care Bullet Lubricant Mixer Name Role Phone Unavailable Primary Care Provider Unavailabl e Source Comments Patient records contain information from all sites at [facility]. For routine questions regarding patient records, call [phone] during business hours, M-F 8:00 AM - 5:00 PM Central Time. Record requests for emergency care only can be directed to [phone] at any time.[facility] Encounters Date Type Department Care Team Description 12/02/2023 Clinical Communication Department of Radiation Oncology in [place], [place] [address] [place] [id number] Ky Guidry M.D. from Last 3 Months Allergies Active Allergy Reactions Criticality Noted Date [...] Name Administration Dates Next Due Tdap 09/19/2006 Social History Tobacco Use Types Packs/Day Years Used Date Smoking Tobacco: Former Cigarettes Q uit: 11/05/2013 Smokeless Tobacco: Former Quit: 11/05/2013 Alcohol Use Standard Drinks/Week Comments Not Currently 0 (1 standard drink = 0.6 oz pure alcohol) Previously a problem in the 1980s. Humiliation, Afraid, Rape, and Kick questionnair e [...] often do you attend chur ch or evangelical services? 1 to 4 times per year 02/27/2022 Do you belong to any clubs o r organizations such as orthodox groups, unions, fraternal or athletic groups, or [...] housing, medical care, and heating? Hard 02/27/2022 [facility] - Occupational Stress [...] money to buy more. Never true 02/28/20 Within the past 12 months, t he [...] place to sleep or slept in a chcf (including now)? 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 Gender Identity Male 07/27/2021 2:39 PM CDT Sexual Orientation Straight 07/27/2021 2: 39 PM CDT Last Filed Vital Signs Vital Sign Reading Time Taken Comments Blood Pressure 135/78 03/04/2022 9:50 AM HOME MANAGEMENT SUPERVISOR Pulse 69 03/04/2022 9:50 AM HOME MANAGEMENT SUPERVISOR Temperature 36.5 ??C (97.7 ??F) 03/04/2022 9:50 AM CS T Respiratory Rate - - Oxygen Saturation 100% 08/01/2021 11: 25 AM CDT Inhaled Oxygen Concentration - - Weight 78.4 kg (172 lb 13.5 oz) 023 11:00 AM CDT Height - - Body Mass Index - - Plan of Treatment Not on file Medical Devices Implanted Type Area Senior Market Intelligence Consultant Device Identifier Shelf Expiration Date Model / Serial / Lot Marker Tissue [employer]om[employer] Kv 1x5 - [id number] Implanted:Qty : 4 on 08/01/2021 by Rory Brar M.D. at [facility] [id number] 12/28/2025 [id number] / / [id number] Insurance [facility]
--- OUTSIDE RECORDS SUMMARY | 2024-02-11 13:36 | XMS_ITS ---
Author Organization [facility] Address [address] [place] [address] Care Team Providers Care Warpman Name Role Phone Unavailable Primary Care Provider Unavailabl e Active Problems Problem Noted Date Diagnosed Date Primary Malignant Neoplasm Of Prostate 2 Cancer Staging:Clinical stage from 03/26/2021:Stage IIC(cT1c, cN0, cM0, PSA: 10.5, Grade Group: 4) - Unsigned Dysthymia 04/18/2010 Overview (08/27/2016): Depression with Anxiety* Current Oncology Plans No current plan information found. Past Plans No past plan information found. Radiation Treatments * Plan Last Treated On Elapsed Days Fractions Treated Prescribed Fraction Dose Prescribed Total Dose [id number] 08/20/2021 10 5 of 5 800 cGy 4,000 cGy Reference Point Last Treated On Elapsed Days Session Dose Total Dose [id number] 08/20/2021 10 800 cGy 4,000 cGy
--- OUTSIDE RECORDS SUMMARY | 2024-02-11 13:36 | XMS_ITS | Encounter Summary ---
Author Organization [facility] Address [address] [place] [address] Care Team Providers Care Cardiac Cath Technician Name Role Phone Unavailable Primary Care Provider Unavailabl e Encounter Details Date Type Department Care Team (Late st Contact Info) Description 12/02/2023 Clinical Communication Department of Radiation Oncology in [place], [place] [address] [place] [phone] Ky Guidry M.D. [address] [place] [address] Social History Tobacco Use Types Packs/Day Years [...] often do you attend chur ch or druze services? 1 to 4 times per year 02/27/2022 Do you belong to any clubs o r organizations such as hoahaoism groups, unions, fraternal or athletic groups, or [...] Average Number of Drinks Not on file Frequency of Binge Drinking Not on file 02/06 Overall Financial Resource Strain (CARDIA) Answe r Date Recorded How hard is it for you to pa y for the very basics like food, housing, medical care, and heating? Hard 02/27/2022 [facility] - Occupational [...] place to sleep or slept in a custodial (including now)? 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
[2024-02-11 15:01] LABS: PSA Diagnostic* 1.49 ng/mL (0.10-4.00)
== END 2024-02-11 13:35 | disposition home or self-care (01) ==
PROVIDERS: PCP Family Medicine; Visit Provider Physician Assistant
DX: C61 Malignant neoplasm of prostate (principal)
CPT/HCPCS: 36415; 84153

== ENCOUNTER 2024-09-03 15:23 | Outpatient (CLI) | payer OTHER, SELFPAY ==
[2024-09-03 16:22] LABS: PSA Diagnostic* 1.51 ng/mL (0.10-4.00)
== END 2024-09-03 15:24 | disposition home or self-care (01) ==
PROVIDERS: PCP Family Medicine; Visit Provider Physician Assistant
DX: C61 Malignant neoplasm of prostate (principal)
CPT/HCPCS: 36415; 84153

== ENCOUNTER 2024-11-09 13:09 | Outpatient (CLI) | payer OTHER, SELFPAY | END 2024-11-09 13:10 | disposition home or self-care (01) | LOC: NFLDREF 11-11 16:32 | PROVIDERS: PCP Family Medicine; Referring Provider Family Medicine; Visit Provider Family Medicine | DX: I10 Essential (primary) hypertension (principal); Z13.6 Encounter for screening for cardiovascular disorders; Z13.9 Encounter for screening, unspecified | CPT/HCPCS: 80048; 80061; 84460 ==